=== PATIENT | female | born 1935 | race Two or more races ===

== ENCOUNTER 2017-10-24 08:11 | Inpatient (IN) | payer OTHER ==
[~2017-10-24] VITALS: Ht 149.9 cm; Wt 45.4 kg
[2017-10-24] MEDS ORDERED: RISPERDAL0.5 MG (08:23)
[2017-10-24] MEDS ORDERED: ESCITALOPRAM OX20 MG (08:24)
[2017-10-24] MEDS ORDERED: LEVOTHYROXINE50 MCG (08:24)
[2017-10-24] MEDS ORDERED: LOSARTAN-HCTZ1 EAC1 (08:24)
[2017-10-24] MEDS ORDERED: RISPERDAL M-TAB1 MG (08:25)
[2017-10-24] MEDS ORDERED: SIMVASTATIN5 MG (08:25)
[2017-11-08] MEDS ORDERED: LOPRESSOR25 MG PO (07:51)
[2017-11-08] MEDS ORDERED: SIMVASTATIN5 MG PO (07:51)
[2017-11-08] MEDS ORDERED: LEVOTHYROXINE50 MCG PO (07:51)
== END 2017-11-08 13:21 | disposition home health service (06) | DRG 853 ==
LOC: ER 08:11 → MEDI 10:03 → SEC-K 10:03 → MEDI 12:55
PROVIDERS: Surgery
PROC: CP1Z1ZZ Planar Nuclear Medicine Imaging of Musculoskeletal System, All using Technetium 99m (Tc-99m) (ICD-10-PCS; 2017-10-24)
PROC: CW1NLZZ Planar Nuclear Medicine Imaging of Whole Body using Gallium 67 (Ga-67) (ICD-10-PCS; 2017-10-26)
PROC: BB24ZZZ Computerized Tomography (CT Scan) of Bilateral Lungs (ICD-10-PCS; 2017-10-30)
PROC: 02HV33Z Insertion of Infusion Device into Superior Vena Cava, Percutaneous Approach (ICD-10-PCS; 2017-10-30)
PROC: 3E0F7GC Introduction of Other Therapeutic Substance into Respiratory Tract, Via Natural or Artificial Opening (ICD-10-PCS; 2017-10-31)
PROC: B246ZZZ Ultrasonography of Right and Left Heart (ICD-10-PCS; 2017-10-31)
PROC: 0DH63UZ Insertion of Feeding Device into Stomach, Percutaneous Approach (ICD-10-PCS; 2017-11-01)
PROC: 4A033R1 Measurement of Arterial Saturation, Peripheral, Percutaneous Approach (ICD-10-PCS; 2017-11-01)
PROC: 5A1935Z Respiratory Ventilation, Less than 24 Consecutive Hours (ICD-10-PCS; 2017-11-01)
PROC: 0BH17EZ Insertion of Endotracheal Airway into Trachea, Via Natural or Artificial Opening (ICD-10-PCS; 2017-11-01)
PROC: 0JB90ZZ Excision of Buttock Subcutaneous Tissue and Fascia, Open Approach (ICD-10-PCS; principal; 2017-11-01 12:00)
PROC: 0JB90ZZ Excision of Buttock Subcutaneous Tissue and Fascia, Open Approach (ICD-10-PCS; 2017-11-06)
DX: A41.9 Sepsis, unspecified organism (principal); L89.223 Pressure ulcer of left hip, stage 3; L89.313 Pressure ulcer of right buttock, stage 3; J95.821 Acute postprocedural respiratory failure; E87.0 Hyperosmolality and hypernatremia; E46 Unspecified protein-calorie malnutrition; N39.0 Urinary tract infection, site not specified; J90 Pleural effusion, not elsewhere classified; J98.11 Atelectasis; B37.0 Candidal stomatitis; R13.19 Other dysphagia; E86.0 Dehydration; Z74.01 Bed confinement status; F03.90 Unspecified dementia, unspecified severity, without behavioral disturbance, psychotic disturbance, mood disturbance, and anxiety; B96.29 Other Escherichia coli [E. coli] as the cause of diseases classified elsewhere; B96.4 Proteus (mirabilis) (morganii) as the cause of diseases classified elsewhere; B95.2 Enterococcus as the cause of diseases classified elsewhere; B96.5 Pseudomonas (aeruginosa) (mallei) (pseudomallei) as the cause of diseases classified elsewhere; B96.1 Klebsiella pneumoniae [K. pneumoniae] as the cause of diseases classified elsewhere

== ENCOUNTER 2017-11-09 16:25 | Emergency (ER) | payer OTHER ==
[~2017-11-09] VITALS: Ht 165.1 cm; Wt 72.6 kg
[~2017-11-09 16:25] MED LIST: ESCITALOPRAM OX20 MG; LEVOTHYROXINE50 MCG; LEVOTHYROXINE50 MCG PO; LOPRESSOR25 MG PO; LOSARTAN-HCTZ1 EAC1; RISPERDAL M-TAB1 MG; RISPERDAL0.5 MG; SIMVASTATIN5 MG; SIMVASTATIN5 MG PO
[2017-11-10] MEDS ORDERED: SPIRONOLACTONE50 MG PO (08:23)
[2017-11-10] MEDS ORDERED: FUROSEMIDE20 MG PO (08:24)
== END 2017-11-10 11:10 | disposition home or self-care (01) ==
LOC: ER 16:25
DX: R18.8 Other ascites (principal); K74.69 Other cirrhosis of liver; B19.20 Unspecified viral hepatitis C without hepatic coma; J90 Pleural effusion, not elsewhere classified